=== PATIENT | female | born 1965 | race Caucasian/White ===

== ENCOUNTER 2018-12-28 16:04 | Emergency (ER) | payer BC, OTHER ==
--- NOTE | 2018-12-28 16:27 | ED Physician Documentation ---
General Adult - HISTORIAN Historian: patient - HPI Stated Complaint: nausea and vomiting with abdominal "fullness" x 3 weeks Chief Complaint: Nausea,Vomiting,Diarrhea Further Comments: yes (She states she has had a feeling of "feeling full in mid belly and vomiting that I cannot stop and some relief after vomiting" denies any pain. She has a sensation from her mid abdomen to her back prior to the full felling then she vomits and she is somewhat better. She has had this issue x 3 weeks. NO fever) - ROS CONST: recent illness EYES/ENT: nasal drainage MS/SKIN/LYMPH: denies: rash - PAST HX Past History: none Immunizations: UTD Allergies/Adverse Reactions: Allergies Allergy/AdvReac Type Severity Reaction Status Date / Time No Known Allergies Allergy Verified 12/28/18 16:46 Home Medications: Ambulatory Orders Medication Instructions Recorded Citalopram Hydrobromide [Celexa] 10 mg PO DAILY 12/28/18 - SOCIAL HX Smoking History: non-smoker Alcohol Use: none Drug Use: none - FAMILY HX Family History: No - REVIEWED ASSESSMENTS Nursing Assessment Reviewed: Yes Vitals Reviewed: Yes Progress - Progress Progress: 1745: discussed findings and results. She needs to follow up with PCP for possible GI referral - she is agreeable - discussed dietary changes and med DG General Adult Physical Exam - PHYSICAL EXAM GENERAL APPEARANCE: no distress EENT: eye inspection normal, no signs of dehydration NECK: normal inspection RESPIRATORY: no resp distress, chest non-tender, breath sounds normal CVS: reg rate & rhythm, heart sounds normal ABDOMEN: soft, normal bowel sounds, tenderness (epigastric ) SKIN: warm/dry, normal color EXTREMITIES: non-tender, normal range of motion, no evidence of injury, no edema NEURO: oriented X3 Discharge Clincal Impression: Reflux esophagitis Referrals: Primary Doctor,No [Primary Care Provider] - 2 Days Comments: 1. Zantac 150 mg take 1 by mouth twice daily 2. Kidder diet - avoid caffeine and milk bland diet 3. See PCP in 2 days 4. Return to ER for any increased concerns Condition: Stable Decision to Admit: NO Date of Decison to Admit: 12/28/18 Decision Time: 17:49
[2018-12-28] MEDS: 0.9 % SODIUM CHLORIDE 1,000 ML IV ONE (17:08)
[2018-12-28] MEDS: MAG HYDROX/ALUMINUM HYD/SIMETH 30 ML, Lidocaine 2% Viscous 15 ML PO ONE ×2 (17:10)
[2018-12-28 17:14] LABS: BASOPHILS % 0.4 % (0.0-1.5); NEUTROPHILS # 4.4 # k/uL (1.4-7.7)
[2018-12-28 17:26] LABS: eGFR (Non-African) > 60
[2018-12-28 18:34] LABS: APPEARANCE,URINE CLEAR (CLEAR); COLOR,URINE YELLOW (YELLOW); OCCULT BLOOD,URINE TRACE-LYSED (NEGATIVE); PH URINE 6.5 (5.0 - 8.0); UROBILINOGEN URINE 0.2 Eu (0.2-1.0)
[2018-12-28 18:39] VITALS: BP 111/71
== END 2018-12-28 18:09 | disposition home or self-care (01) ==
LOC: ED 16:04
DX: K21.0 Gastro-esophageal reflux disease with esophagitis (principal)
CPT/HCPCS: 80053; 81002; 85025; 93005; 96360; 99283; 99284; A9270-GY; J7030; S1016